=== PATIENT | male | born 1965 | race Caucasian/White ===

== ENCOUNTER 2016-07-22 09:12 | Day surgery (SDC) | payer BC ==
[~2016-07-22] VITALS: Ht 188 cm; Wt 132.9 kg
[2016-07-22] VITALS (7 sets, daily range): BP systolic 92–143; BP diastolic 46–77; PULSE 12–83; RESP 12–20; TEMP 97.6–98.6; O2SAT 93–99; Ht 188 cm; Wt 132.9 kg
[~2016-07-22 09:12] MED LIST: ADAL40PE INJ; AZAT50TA PO; LIDOCAINE 1% (10mg/ml) 2ml SDV INJ ONE; LR 1,000 ML IV PRN
[2016-07-22] MEDS ORDERED: CITA20TA17 PO (09:39)
--- NOTE | 2016-07-22 09:55 | ANESPREOP ---
Anesthesia Record Date and Time DATE: 07/22/16 TIME: 09:51 Proposed Surgical Procedure EXCISIONAL MASS REMOVAL LT SIDE OF BACK NPO since: Midnight Allergies: Coded Allergies: No Known Allergies (Unverified , 07/22/16) Ht/Wt/BMI Height: 6 ' 2.00 " Weight: 132.900 kg BMI: 37.6 kg/m2 Vital Signs Date Time Temp Pulse Resp B/P Pulse Ox O2 Delivery O2 Flow Rate FiO2 07/22/16 09:28 98.6 72 15 143/76 99 Room Air Medications Inpatient Medications Current Medications Medications (Trade) Dose Ordered Sig/Vivian Start Time Stop Time Status Last Admin Dose Admin Lactated Ringer's (Lactated Ringers) 1,000 ml @ 50 mls/hr Q20H PRN 07/22/16 07:00 Adalimumab (Humira) 40 Mg/0.8 Ml Pen.ij.kit, 1 DOSE INJ 1 MONTH, (Reported) Last Taken: on 07/15/16 0700 Azathioprine (Azathioprine) 50 Mg Tablet, 3 TAB PO DAILY, (Reported) Last Taken: on 07/21/16 1200 Citalopram Hydrobromide (Celexa) 20 Mg Tablet, 1 TAB PO DAILY, (Reported) Last Taken: on 07/21/161999 Currently on Beta Christiano: No Medical/Surgical History Anesthesia PMH: Reports: Anesthesia Reactions (NO AIRWAY ISSUES), Other ( Colitis), Denies: *Diabetes, Blood Transfusion Reac, Cancer, Clotting Problems, Glaucoma, Malignant Hyperthermia, Renal Disease, Thyroid Disease Smoking Status: Never smoker Has pt. smoked today?: No Use Chewing Tobacco?: Yes Second Hand Exposure: No Substance Use Type: does not use Alcohol Intake: none Past Surgical History Orthopedic Surgeries: Abdominal Surgeries: Genitourinary Surgeries: Cardiac Surgeries: Endocrine Surgeries: Reproductive Surgeries: Neurological Surgeries: Ear Surgeries: Nose Surgeries: Throat Surgeries: Other Surgeries: Yes - COLONOSCOPY Anesthesia Adverse Reactions: FOUND none Family Hx of Anesthesia Advers: none Hx of Motion Sickness: No Pertinent Findings EKG Rhythm: Sinus Rhythm Physical Exam Respiratory: Lungs clear Cardiovascular: FOUND Regular rate, rhythm Airway Assessment Mallampati Score: II TMD: 3 Fingerbreadths Neck Extension: Good Overall Assessment: May Be Diff Mask Vent. (mattson) ASA: 2 Plan Anesthesia Plan: GETA Discussion Discussed risks/options/alternatives of anesthesia and questions answered. Patient consents. Nursing pain assessment noted. Attestation Statement Prior to the delivery of any anesthetic medication, I examined the patient, developed the plan, obtained the patient's consent and discussed the risk and benefits of the procedure with the patient/guardian. GA CAROLINA July 22, 2016 09:55
[2016-07-22] MEDS ORDERED: BUPIVACAINE 0.25%/EPI 1:200,000 30ml SDV ONE (10:56)
[2016-07-22] MEDS ORDERED: PROPOFOL 500mg 50 ML IV ONE ×3 (11:12→12:20)
[2016-07-22] MEDS ORDERED: LIDOCAINE 2% (20mg/ml) 5ml PF SDV ONE (11:12)
[2016-07-22] MEDS ORDERED: FENTANYL 100mcg/2ml INJECTION ONE (11:12)
[2016-07-22] MEDS ORDERED: KETAMINE 500mg/10ml INJECTION ONE (11:14)
[2016-07-22] MEDS ORDERED: MIDAZOLAM 2mg/2ml INJECTION ONE (11:23)
[2016-07-22] MEDS ORDERED: HYDR-4246 PO (13:13)
[2016-07-22] MEDS ORDERED: POLY17PO6 PO (13:13)
[2016-07-22] MEDS ORDERED: IBUP-1724 PO (13:13)
[2016-07-22] MEDS ORDERED: HYDROCODONE/APAP 5 mg/325 mg TABLET PO PRN (13:15)
--- NOTE | 2016-07-22 13:39 | ANESPO ---
Post-Op Note Date 07/22/16 Time: 13:38 Status Pt Participated in Evaluation: Pt participated in person Vital Signs Date Time Temp Pulse Resp B/P Pulse Ox O2 Delivery O2 Flow Rate FiO2 07/22/16 13:13 78 14 92/55 96 Room Air 07/22/16 12:58 97.9 Respiratory Function: Airway patent, Regular respirations Cardiovascular Function: Regular pulse Mental Status: Alert/oriented Pain Level Intensity: 2 Hydration: IV infusing Complications during Recovery None apparent Follow-Up Instructions Instructions Per Surgeon GA CAROLINA July 22, 2016 13:39
--- NOTE | 2016-07-22 14:48 | OPNOTEF ---
DATE OF PROCEDURE 07/22/2016 SURGEON Danny Boston MD PREOPERATIVE DIAGNOSIS Subcutaneous mass, left back. POSTOPERATIVE DIAGNOSIS Subcutaneous mass, left back. PROCEDURE Excision of a 16 cm subcutaneous mass involving left mid back. ANESTHESIA TIVA/local. BRIEF HISTORY/INDICATIONS Mr. Laurent is a 51-year-old gentleman who has had a subcutaneous mass involving his left mid back region over the course of the last 7-8 years. This mass has grown significantly in its overall size. It does at times cause him an element of discomfort. Upon examination, the mass was about 15-16 cm in diameter and it was soft and freely mobile in nature. As a result of the above indications, it was recommended to the patient that he undergo an excisional biopsy. Patient presents today to undergo excision of this mass. For completeness, please refer to notes included in the patient's chart. DESCRIPTION OF PROCEDURE After informed consent was obtained, the patient was brought to the operative suite and placed on the table in a right lateral decubitus position. Left mid back was then prepped and draped in sterile fashion. The patient did undergo total intravenous anesthesia. Formal time-out was then completed. Next, 0.25% Marcaine with epinephrine was injected circumferentially around the mass as well as overlying the midportion of the mass. Next, a 14 cm transverse incision was then made overlying the area of analgesia. Dissection was carried down through deep subcuticular tissues to the underlying subcutaneous tissues. The patient was found have a large lipomatous-appearing mass. The mass itself was not well encapsulated and it was somewhat difficult to ascertain the borders. With careful dissection, however, the mass was able to be completely dissected free. The mass was adherent to the underlying fascia and the mass was excised off of the fascia in its entirety. The mass was about 15-16 cm in diameter. Mass was passed off the table as a surgical specimen. Meticulous hemostasis was obtained within the wound. Next, a 19-Bangladeshi drain was placed within the wound and allowed to exit out laterally. The incision was then closed in layers. Deep subcutaneous tissues were reapproximated in a running fashion with 3-0 Vicryl. Skin itself was then closed a running fashion with 3-0 Prolene. A drain was secured to right lateral abdominal wall with 2-0 Prolene. CARLOTTA
== END 2016-07-22 13:48 | disposition home or self-care (01) ==
LOC: SCU 09:12
PROVIDERS: ATTEND Surgery
DX: D17.1 Benign lipomatous neoplasm of skin and subcutaneous tissue of trunk (principal); K51.90 Ulcerative colitis, unspecified, without complications; F32.9 Major depressive disorder, single episode, unspecified; E66.9 Obesity, unspecified; F17.220 Nicotine dependence, chewing tobacco, uncomplicated; Z79.899 Other long term (current) drug therapy; Z68.36 Body mass index [BMI] 36.0-36.9, adult; Z86.010 Personal history of colon polyps
CPT/HCPCS: 21931; J2250; J2704; J3010; J7120; S0020